=== PATIENT | male | born 1995 | race African-American/Black ===

== ENCOUNTER 2017-08-11 11:07 | Emergency (ER) | payer SELFPAY ==
[~2017-08-11] VITALS: Ht 180.3 cm; Wt 106.0 kg
[2017-08-11 12:45] LABS: HEMOGLOBIN 14.2 G/DL (12.5-16.6); MCH 26.6 PG (29.0-34.0); MCV 80.7 FL (86-99); PLATELET COUNT 297 K/uL (156-360); RBC DIS.WIDTH-CV 13.4 % (11.8-14.6); RBC DIS.WIDTH-SD 39.5 % (39-53); RED BLOOD COUNT 5.33 M/uL (4.00-5.50); WHITE BLOOD COUNT 12.9 K/uL (4.1-10.2)
[2017-08-11 12:57] LABS: ALBUMIN 4.3 g/dL (3.2-4.8)
[2017-08-11 12:58] LABS: CHLORIDE 107 mEq/L (99-109); SODIUM 138 mEq/L (136-147)
[2017-08-11 13:00] LABS: GLUCOSE 87 mg/dL (70-99); TOTAL PROTEIN 7.1 g/dL (6.4-8.3)
[2017-08-11 13:02] LABS: TOTAL BILIRUBIN 0.8 mg/dL (0.0-1.0)
[2017-08-11 13:03] LABS: ALKALINE PHOSPHATASE 69 IU/L (3-129); CREATININE 1.1 mg/dL (0.6-1.3)
[2017-08-11 13:05] LABS: AST (GOT) 19 IU/L (2-34); UREA NITROGEN (BUN) 12 mg/dL (9-23)
[2017-08-11 13:06] LABS: ALT (GPT) 19 IU/L (3-49); GFR ESTIMATE (CALCULATED) > 59 mL/min/ (58.99-99999)
[2017-08-11 13:07] LABS: LIPASE 10 U/L (1.0-51.0)
[2017-08-11] MEDS ORDERED: ZOFRAN4 MG PO (13:07)
[2017-08-11 14:30] VITALS: BP 123/48
== END 2017-08-11 14:45 | disposition home or self-care (01) ==
LOC: EME 11:07
PROVIDERS: Physician Assistant
DX: R11.10 Vomiting, unspecified (principal); J45.909 Unspecified asthma, uncomplicated; Z72.0 Tobacco use
CPT/HCPCS: 80053; 83690; 85027; 99281; 99285; J1885; J2405; J7030